=== PATIENT | male | born 1965 | race Caucasian/White ===

== ENCOUNTER → 2018-06-22 09:50 | Outpatient (CLI) | payer MEDICAID, SELFPAY ==
--- NOTE | 2018-06-22 09:54 | XR_ITS ---
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 Degenerative disc disease is present at L4-L5 with moderate to severe degenerative disc disease at L5-S1 and S1-S2. There is 9 mm anterolisthesis of S1 on S2. No acute fracture or dislocation. There are facet arthritic changes at the lumbosacral junction. Tubular density is present over the right and left paraspinal region on the oblique views and may be due to overlying artifact also noted over the anterior abdomen on the lateral view. IMPRESSION: Segmentation anomaly with lumbarization of S1 Degenerative disc disease L4-L5 and to a greater degree at L5-S1 and S1-S2 with 9 mm anterolisthesis of S1 on S2 along with facet arthritic changes
== END ==
PROVIDERS: PCP Physician Assistant; Visit Provider Physician Assistant
DX: M54.12 Radiculopathy, cervical region (principal); M54.5 Low back pain
CPT/HCPCS: 72110

== ENCOUNTER → 2019-12-31 10:09 | Outpatient (CLI) | payer OTHER, SELFPAY | PROVIDERS: PCP Physician Assistant; Visit Provider Physician Assistant | DX: R06.00 Dyspnea, unspecified (principal) | CPT/HCPCS: 94010 ==

== ENCOUNTER 2020-09-08 14:50 | Outpatient (RCR) | payer OTHER, SELFPAY | END 2020-10-09 14:12 | disposition home or self-care (01) | LOC: PT.CARL 14:50 | PROVIDERS: PCP Physician Assistant; Visit Provider Physician Assistant | DX: M54.2 Cervicalgia (principal); M54.5 Low back pain; G89.29 Other chronic pain | CPT/HCPCS: 97163 ==

== ENCOUNTER → 2021-09-16 16:20 | Outpatient (CLI) | payer OTHER, SELFPAY ==
[2021-09-16 16:35] LABS: Basophils # 0.1 K/mm3 (0-0.2); Eosinophils # 0.6 K/mm3 (0.0-0.4); Eosinophils % 6.3 % (0.1-12.0); Hematocrit 48.6 % (42.0-52.0); Hemoglobin 16.5 g/dL (14.1-18.0); Lymphocytes # 1.6 K/mm3 (0.7-4.5); Lymphocytes % 18.1 % (10-50); Mean Corpuscular Hemoglobin 33.5 pg (27.0-31.2); Mean Corpuscular Volume 98.6 fl (80-94); Monocytes # 0.5 K/mm3 (0.1-1.0); Monocytes % 5.2 % (1.7-9.3); Neutrophils # 6.1 K/mm3 (1.8-7.8); Neutrophils % 69.4 % (37.0-80.0); Platelet Count 265 K/mm3 (142-424); Red Blood Count 4.94 M/mm3 (4.60-6.20); Red Cell Distribution Width 12.5 % (11.5-17.5); White Blood Count 8.8 K/mm3 (4.8-10.8)
[2021-09-16 17:01] LABS: Alanine Aminotransferase 279 U/L (12-78); Albumin Level 4.8 g/dl (3.5-5.0); Albumin/Globulin Ratio 1.8 (1.1-1.8); Alkaline Phosphatase 120 U/L (38-126); Anion Gap 12.8 mEq/L (5-15); Aspartate Amino Transferase 188 U/L (17-59); Bilirubin,Total 0.7 mg/dl (0.2-1.3); Blood Urea Nitrogen 6 mg/dl (9-20); Calcium 10.1 mg/dl (8.4-10.2); Carbon Dioxide 30 mmol/L (22.0-30.0); Chloride 100 mmol/L (98-107); Chol/HDL Ratio 3.9 (1-3.5); Cholesterol 201 mg/dl (140-200); Estimated Glomerular Filt Rate 87 ml/min (>60); GFR (African American) 105 ML/MIN (>60); Globulin 2.7 g/dL (1.3-3.2); Glucose 110 mg/dl (74-100); HDL Cholesterol 51 mg/dl (40-60); Potassium 3.8 mmoL/L (3.5-5.1); Sodium 139 mmol/L (136-145); Total Protein,Serum 7.5 g/dl (6.3-8.2); Triglycerides 177 mg/dl (30-150); VLDL Cholesterol 35 mg/dL (0-40)
[2021-09-16 17:12] LABS: Direct LDL Cholesterol 126.92 mg/dL (100-129)
[2021-09-16 17:21] LABS: 25-OH Vitamin D, Total 42.3 ng/mL (30-100)
[2021-09-16 17:34] LABS: Thyroid Stimulating Hormone 1.77 uIU/mL (0.465-4.68)
== END ==
PROVIDERS: Visit Provider Physician Assistant
DX: I10 Essential (primary) hypertension (principal); Z12.5 Encounter for screening for malignant neoplasm of prostate; Z00.00 Encounter for general adult medical examination without abnormal findings
CPT/HCPCS: 80053; 80061; 82306; 84443; 85025; G0103

== ENCOUNTER → 2021-10-19 10:24 | Outpatient (CLI) | payer OTHER, SELFPAY ==
[2021-10-20 09:43] LABS: Hep A Ab, IgM Negative (Negative); Hepatitis B Core Antibody IgM Negative (Negative); Hepatitis B Surface Antigen Negative (Negative); Hepatitis C Antibody 0.1 s/co ratio (0.0-0.9)
== END ==
PROVIDERS: Visit Provider Physician Assistant
DX: R74.8 Abnormal levels of other serum enzymes (principal)
CPT/HCPCS: 36415; 80074

== ENCOUNTER → 2021-11-11 13:01 | Outpatient (CLI) | payer OTHER, SELFPAY ==
--- NOTE | 2021-11-11 13:02 | CT_ITS ---
FINAL REPORT CLINICAL HISTORY: 44-year-old male, current smoker with [id number] history smoker x 45 years- 1 ppd COMPARISON: No prior FINDINGS: Axial images were obtained from the lung apex to the mid abdomen by computed tomography. Low-dose protocol was utilized. CTDl vol(mGy): 2.90 DLP (mGy-cm): 111.77 FINDINGS: There are a few small scattered right hilar and mediastinal lymph nodes. On the lung windows, there are advanced changes of centrilobular emphysema. There is a calcified granuloma in the right lower lobe of the lung. There is a tiny nodule in the periphery the right upper lobe measuring 2 mm, well seen on image 23 of series 4. IMPRESSION: Lung RADS category 2S*. Recommend 12 month follow-up low-dose chest CT. *S - advanced changes of centrilobular emphysema. Reviewed, Interpreted and Dictated by Daryl Rubin MD Transcribed by Elinor Nails Authenticated by Daryl Rubin MD on 11/11/2021 03:13:53 PM [facility]
== END ==
PROVIDERS: PCP Physician Assistant; Visit Provider Physician Assistant
DX: Z87.891 Personal history of nicotine dependence (principal); Z12.2 Encounter for screening for malignant neoplasm of respiratory organs
CPT/HCPCS: 71271

== ENCOUNTER → 2023-01-05 16:23 | Outpatient (CLI) | payer OTHER, SELFPAY ==
[2023-01-05 15:11] LABS: Basophils # 0.1 K/mm3 (0-0.2); Basophils % 1.2 % (0.1-2.0); Eosinophils % 9.7 % (0.1-12.0); Hematocrit 49.3 % (42.0-52.0); Hemoglobin 16.4 g/dL (14.1-18.0); Lymphocytes # 2.4 K/mm3 (0.7-4.5); Lymphocytes % 23.5 % (10-50); Mean Corpuscular HGB Conc 33.1 g/dL (31.8-35.4); Mean Corpuscular Hemoglobin 31.2 pg (27.0-31.2); Monocytes # 0.7 K/mm3 (0.1-1.0); Monocytes % 6.4 % (1.7-9.3); Neutrophils # 6.1 K/mm3 (1.8-7.8); Neutrophils % 59.2 % (37.0-80.0); Platelet Count 311 K/mm3 (142-424); Red Blood Count 5.25 M/mm3 (4.60-6.20); White Blood Count 10.2 K/mm3 (4.8-10.8)
[2023-01-05 15:13] LABS: Alanine Aminotransferase 20 U/L (12-78); Albumin Level 4.8 g/dl (3.5-5.0); Albumin/Globulin Ratio 1.5 (1.1-1.8); Alkaline Phosphatase 99 U/L (38-126); Anion Gap 12.1 mEq/L (5-15); Aspartate Amino Transferase 37 U/L (17-59); Bilirubin,Total 0.9 mg/dl (0.2-1.3); Blood Urea Nitrogen 8 mg/dl (9-20); Calcium 9.5 mg/dl (8.4-10.2); Carbon Dioxide 27 mmol/L (22.0-30.0); Chloride 105 mmol/L (98-107); Chol/HDL Ratio 5.8 (1-3.5); Cholesterol 181 mg/dl (140-200); Estimated Glomerular Filt Rate 77 ml/min (>60); GFR (African American) 93 ML/MIN (>60); Globulin 3.3 g/dL (1.3-3.2); Glucose 106 mg/dl (74-100); HDL Cholesterol 31 mg/dl (40-60); Potassium 4.1 mmoL/L (3.5-5.1); Sodium 140 mmol/L (136-145); Total Protein,Serum 8.1 g/dl (6.3-8.2); Triglycerides 293 mg/dl (30-150); VLDL Cholesterol 59 mg/dL (0-40)
[2023-01-05 15:24] LABS: Direct LDL Cholesterol 104.31 mg/dL (100-129)
[2023-01-05 15:44] LABS: Prostate Specific Ag Screen 1.1 ng/ml (0.0-4.0); Thyroid Stimulating Hormone 2.54 uIU/mL (0.465-4.68)
== END ==
PROVIDERS: PCP Physician Assistant; Visit Provider Physician Assistant
DX: I10 Essential (primary) hypertension (principal); F41.9 Anxiety disorder, unspecified; J44.9 Chronic obstructive pulmonary disease, unspecified; J42 Unspecified chronic bronchitis; Z12.5 Encounter for screening for malignant neoplasm of prostate
CPT/HCPCS: 80053; 80061; 82306; 84443; 85025; G0103

== ENCOUNTER → 2023-01-19 08:01 | Outpatient (CLI) | payer OTHER, SELFPAY ==
--- NOTE | 2023-01-19 08:06 | CT_ITS ---
FINAL REPORT CLINICAL HISTORY: lung cancer screening COMPARISON: 11/11/2021 FINDINGS: Low-Dose Chest CT Axial images were obtained from the lung apex to the mid abdomen by computed tomography. Low-dose protocol was utilized. CTDI vol (mGy): 2.90 DLP (mGy-cm): 108.90 There is no axillary adenopathy. There is no hilar or mediastinal adenopathy. The heart is proper size. There is moderate to severe coronary artery calcification, stable. There is no pericardial or pleural effusion. Lung window images demonstrate a stable 2 mm right upper lobe nodule. There is a 2 mm nodule in the superior segment the left lower lobe seen on image 41. There is a calcified granuloma in the right lower lobe. There is mild pulmonary scarring. Limited images of the upper abdomen are unremarkable. IMPRESSION: Stable 2 mm nodules in the right upper lobe and left lower lobe. S modifier: Moderate to severe coronary artery calcification. Lung RADS category 2S. Recommend 12 month follow-up low-dose chest CT. Reviewed, Interpreted and Dictated by Toribio Carvajal III, MD Transcribed by Mary Collado Authenticated and [facility]
== END ==
PROVIDERS: PCP Physician Assistant; Visit Provider Physician Assistant
DX: Z87.891 Personal history of nicotine dependence (principal); Z12.2 Encounter for screening for malignant neoplasm of respiratory organs; J44.9 Chronic obstructive pulmonary disease, unspecified
CPT/HCPCS: 71271